=== PATIENT | female | born 1930 | race Caucasian/White ===

== ENCOUNTER 2016-12-03 20:42 | Inpatient (IN) | payer MEDICARE ==
[~2016-12-03] VITALS: Ht 157.5 cm; Wt 58.5 kg
--- NOTE | 2016-12-03 21:55 | NUR ---
Report called to MIRIAM Avitia.
[2016-12-03] MEDS ORDERED: SENN-167 PO (22:48)
[2016-12-03] MEDS ORDERED: CITA20TA11 PO (22:48)
[2016-12-03] MEDS ORDERED: PANT40TA4 PO (22:48)
[2016-12-03] MEDS ORDERED: LISI10TA5 PO (22:48)
[2016-12-03] MEDS ORDERED: FERR325T28 PO (22:48)
[2016-12-03] MEDS ORDERED: DONE10TA44 PO (22:48)
[2016-12-03] MEDS ORDERED: PRAV10TA40 PO (22:48)
[2016-12-03] MEDS ORDERED: CYAN100T3 PO (22:48)
[2016-12-03] MEDS ORDERED: ACET325T53 PO (22:48)
[2016-12-03] MEDS ORDERED: ASPI81TA31 PO (22:48)
[2016-12-03] MEDS ORDERED: CLOP75TA15 PO (22:48)
[2016-12-03] MEDS ORDERED: AMPI500C11 PO (22:48)
[2016-12-03] MEDS ORDERED: BLOO-140 IN (22:48)
[2016-12-03] MEDS ORDERED: DOCU100C36 PO (22:48)
--- NOTE | 2016-12-03 23:07 | NUR ---
Pt. admitted to [facility] , under care of Dr. Sutton Belongs List completed
--- NOTE | 2016-12-03 23:18 | NUR ---
Pt. admitted to [facility] , under care of Dr. Sutton Belongs List completed
[2016-12-04] MEDS ORDERED: LORAZEPAM 1 MG TABLET PO PRN
[2016-12-04] MEDS ORDERED: MAG HYDROX/AL HYDROX/SIMETH 30 ML LIQUID UDC PO PRN
[2016-12-04] MEDS ORDERED: ACETAMINOPHEN 325 MG TABLET PO PRN
[2016-12-04] MEDS ORDERED: TEMAZEPAM 7.5 MG CAPSULE PO PRN
[2016-12-04] MEDS ORDERED: MAGNESIUM HYDROXIDE 30 ML LIQUID UDC PO PRN
[2016-12-04 01:13] VITALS: BP 125/72
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
[2016-12-04 07:30] VITALS: BP 129/74
[2016-12-04] MEDS ORDERED: AMPICILLIN 500 MG CAPSULE PO SCH (10:45)
[2016-12-04] MEDS ORDERED: Medication Not On Formulary EA (Pravastatin Sodium 10 MG) PO SCH (10:45)
[2016-12-04] MEDS ORDERED: DEXTROSE 50% 50 ML DISP.SYRIN IV PRN (10:45)
--- NOTE | 2016-12-04 12:23 | NUR ---
Initial discharge instructions: The patient reside at [facility] [[address] [place] [address]; ]. Spoke with the patient's daughter who stated that she would like the patient to return to the facility upon DC. RODRIGO called the facility designer/local owner operator truck driver Aj Benavides who stated that he would like to come assess the patient prior to accepting her back to the facility. RODRIGO will speak with patient, family, and MD regarding most appropriate discharge plan. SS will form a safe and proper discharge.
[2016-12-04] MEDS: AMPICILLIN 500 MG CAPSULE PO SCH ×3 (12:51→20:06)
[2016-12-04] MEDS: PANTOPRAZOLE SODIUM 40 MG TABLET.DR PO SCH (12:51)
[2016-12-04] MEDS: FERROUS SULFATE 325 MG TABEC PO SCH ×3 (12:51→17:34)
[2016-12-04] MEDS: CLOPIDOGREL 75 MG TABLET PO SCH (12:51)
[2016-12-04] MEDS: QUETIAPINE FUMARATE 25 MG TABLET PO SCH ×2 (12:52→17:34)
[2016-12-04] MEDS: DOCUSATE SODIUM 100 MG CAPSULE PO SCH ×2 (12:53→17:34)
[2016-12-04] MEDS: CYANOCOBALAMIN 100 MCG TABLET PO SCH (12:54)
[2016-12-04] MEDS: CITALOPRAM 20 MG TABLET PO SCH (12:54)
[2016-12-04] MEDS: ASPIRIN 81 MG TAB.CHEW PO SCH (12:54)
[2016-12-04] MEDS: SENNOSIDES 1 TABLET PO SCH (12:59)
--- NOTE | 2016-12-04 13:06 | NUR ---
ist dose given at 1300 already
[2016-12-04] MEDS: BLOOD SUGAR DIAGNOSTIC 1 EACH STRIP VI SCH ×3 (13:20→20:19)
[2016-12-04] MEDS: INSULIN REGULAR, HUMAN 300 UNIT/3 ML VIAL SQ PRN ×2 (13:27→20:27)
--- NOTE | 2016-12-04 14:21 | NUR ---
UR Note: RODRIGO faxed most the patient's most recent clinicals: facesheet, 5150, H&P, progress notes, and medication list to AKANKSHA Benavidez Assigned: Josee PH: , Tracking # : [id number]
[2016-12-04 14:54] LABS: BASOPHILS % (AUTO) 0.3 % (0.0-2.0); EOSINOPHILS # (AUTO) 0.1 K/uL (0.0-0.7); EOSINOPHILS % (AUTO) 1.9 % (0.0-7.0); HEMATOCRIT 29.2 % (37-47); HEMOGLOBIN 9.4 G/DL (12.0-16.0); LYMPHOCYTES # (AUTO) 0.8 K/UL (0.8-4.8); LYMPHOCYTES % (AUTO) 12.2 % (20.5-51.5); MEAN CORPUSCULAR HEMOGLOBIN 27.7 UUG (27.0-31.0); MEAN CORPUSCULAR HGB CONC 32 g/dL (32.0-37.0); MEAN CORPUSCULAR VOLUME 86.4 FL (81.0-99.0); MONOCYTES # (AUTO) 0.5 K/UL (0.1-1.30); MONOCYTES % (AUTO) 7.3 % (0.0-11.0); NEUTROPHILS # (AUTO) 5.1 K/UL (1.8-8.9); NEUTROPHILS % (AUTO) 78.3 % (38.5-71.5); PLATELET COUNT (AUTO) 276 K/UL (150-450); RED BLOOD CELL COUNT(AUTO) 3.38 MIL/UL (4.2-5.4); WHITE BLOOD COUNT (AUTO) 6.5 K/UL (4.0-11.2)
[2016-12-04 15:00] VITALS: BP 105/75
[2016-12-04 15:13] LABS: ALANINE AMINOTRANSFERASE 12 U/L (14-59); ALKALINE PHOSPHATASE 83 U/L (50-136); ASPARTATE AMINOTRANSFERASE 19 U/L (15-37); BILIRUBIN,TOTAL 0.4 mg/dL (0.2-1.0); CARBON DIOXIDE 24 mmol/L (21-32); CHLORIDE 97 mmol/L (98-107); CREATININE 0.7 mg/dL (0.6-1.3); GLUCOSE 84 mg/dL (74-106); MAGNESIUM 1.8 mg/dL (1.8-2.4); PHOSPHOROUS 3.7 mg/dL (2.5-4.9); POTASSIUM 4.5 mmol/L (3.5-5.1); TOTAL PROTEIN, SERUM 7.2 g/dL (6.4-8.2); UREA NITROGEN, BLOOD 13 mg/dL (7-18)
[2016-12-04 15:17] LABS: BAND % (MANUAL) 5 % (0-10); EOSINOPHILS % (MANUAL) 1 % (0-8); LYMPHOCYTES % (MANUAL) 12 % (20-40); MONOCYTES % (MANUAL) 7 % (2-10); NEUTROPHILS % (MANUAL) 75 % (42-75)
[2016-12-04 15:36] LABS: THYROID STIMULATING HORMONE 2.739 mIU/mL (0.358-3.740)
--- NOTE | 2016-12-04 19:19 | NUR ---
patient up in ronni chair in front of nurses station with no outbursts , assisted to bathroom with moderate assist, oral intake qs family in too visit med compliant and stated o accucheck wnl continue to monitor pts safety
[2016-12-04] MEDS: ATORVASTATIN 10 MG TABLET PO SCH (20:06)
[2016-12-04 20:48] VITALS: BP 119/72
[2016-12-05] MEDS: BLOOD SUGAR DIAGNOSTIC 1 EACH STRIP VI SCH ×4 (06:35→20:29)
[2016-12-05 07:30] VITALS: BP 115/65
[2016-12-05 07:54] LABS: BASOPHILS % (AUTO) 0.2 % (0.0-2.0); EOSINOPHILS # (AUTO) 0.2 K/uL (0.0-0.7); EOSINOPHILS % (AUTO) 3.2 % (0.0-7.0); HEMOGLOBIN 8.8 G/DL (12.0-16.0); LYMPHOCYTES % (AUTO) 19.7 % (20.5-51.5); MEAN CORPUSCULAR HEMOGLOBIN 28.4 UUG (27.0-31.0); MEAN CORPUSCULAR HGB CONC 33 g/dL (32.0-37.0); MEAN CORPUSCULAR VOLUME 87.1 FL (81.0-99.0); MONOCYTES # (AUTO) 0.6 K/UL (0.1-1.30); MONOCYTES % (AUTO) 11.1 % (0.0-11.0); NEUTROPHILS # (AUTO) 3.2 K/UL (1.8-8.9); NEUTROPHILS % (AUTO) 65.8 % (38.5-71.5); PLATELET COUNT (AUTO) 271 K/UL (150-450)
[2016-12-05] MEDS: CLOPIDOGREL 75 MG TABLET PO SCH (08:47)
[2016-12-05] MEDS: PANTOPRAZOLE SODIUM 40 MG TABLET.DR PO SCH (08:47)
[2016-12-05] MEDS: AMPICILLIN 500 MG CAPSULE PO SCH ×4 (08:47→20:30)
[2016-12-05] MEDS: CYANOCOBALAMIN 100 MCG TABLET PO SCH (08:47)
[2016-12-05] MEDS: DOCUSATE SODIUM 100 MG CAPSULE PO SCH ×4 (08:47→17:15)
[2016-12-05] MEDS: SENNOSIDES 1 TABLET PO SCH (08:47)
[2016-12-05] MEDS: FERROUS SULFATE 325 MG TABEC PO SCH ×3 (08:48→17:01)
[2016-12-05] MEDS: ASPIRIN 81 MG TAB.CHEW PO SCH (08:48)
[2016-12-05] MEDS: CITALOPRAM 20 MG TABLET PO SCH (08:48)
[2016-12-05 08:49] LABS: ALANINE AMINOTRANSFERASE 11 U/L (14-59); ALKALINE PHOSPHATASE 75 U/L (50-136); ASPARTATE AMINOTRANSFERASE 12 U/L (15-37); BILIRUBIN,TOTAL 0.5 mg/dL (0.2-1.0); CARBON DIOXIDE 24 mmol/L (21-32); CHLORIDE 96 mmol/L (98-107); CREATININE 1.2 mg/dL (0.6-1.3); GLUCOSE 88 mg/dL (74-106); MAGNESIUM 1.7 mg/dL (1.8-2.4); PHOSPHOROUS 4.1 mg/dL (2.5-4.9); POTASSIUM 4.5 mmol/L (3.5-5.1); TOTAL PROTEIN, SERUM 6.7 g/dL (6.4-8.2); UREA NITROGEN, BLOOD 19 mg/dL (7-18)
[2016-12-05] MEDS: QUETIAPINE FUMARATE 25 MG TABLET PO SCH ×2 (08:57→17:02)
[2016-12-05 08:59] LABS: IRON, SERUM 32 ug/dL (50-175)
[2016-12-05] MEDS ORDERED: MAGNESIUM OXIDE 400 MG TABLET PO ONE (13:30)
[2016-12-05 15:51] VITALS: BP 110/66
[2016-12-05] MEDS: ATORVASTATIN 10 MG TABLET PO SCH (20:06)
[2016-12-05 20:46] VITALS: BP 124/71
[2016-12-06] MEDS: BLOOD SUGAR DIAGNOSTIC 1 EACH STRIP VI SCH ×4 (06:54→20:35)
[2016-12-06 07:30] VITALS: BP 113/63
[2016-12-06] MEDS: AMPICILLIN 500 MG CAPSULE PO SCH ×4 (08:06→20:29)
[2016-12-06] MEDS: CYANOCOBALAMIN 100 MCG TABLET PO SCH (08:06)
[2016-12-06] MEDS: FERROUS SULFATE 325 MG TABEC PO SCH ×3 (08:06→17:08)
[2016-12-06] MEDS: DOCUSATE SODIUM 100 MG CAPSULE PO SCH ×2 (08:06→17:08)
[2016-12-06] MEDS: CITALOPRAM 20 MG TABLET PO SCH (08:06)
[2016-12-06] MEDS: QUETIAPINE FUMARATE 25 MG TABLET PO SCH ×2 (08:06→17:08)
[2016-12-06] MEDS: CLOPIDOGREL 75 MG TABLET PO SCH (08:06)
[2016-12-06] MEDS: SENNOSIDES 1 TABLET PO SCH (08:06)
[2016-12-06] MEDS: ASPIRIN 81 MG TAB.CHEW PO SCH (08:06)
[2016-12-06] MEDS: PANTOPRAZOLE SODIUM 40 MG TABLET.DR PO SCH (08:06)
[2016-12-06 11:48] LABS: *BILIRUBIN,URIN NEGATIVE (NEGATIVE); *BLOOD, URINE NEGATIVE (NEGATIVE); *CLARITY,URINE CLEAR (CLEAR); *COLOR,URINE YELLOW (YELLOW); *KETONES,URINE NEGATIVE (NEGATIVE); *PROTEIN,URINE NEGATIVE (NEGATIVE); *UROBILINOGEN,URINE 0.2 E.U./dl (NORMAL); LEUKOCYTE ESTERASE ,URINE NEGATIVE (NEGATIVE); NITRITE, URINE NEGATIVE (NEGATIVE); PH,URINE 5.5 (5.0-8.0); UGLUCOSE NEGATIVE (NEGATIVE)
[2016-12-06 12:21] LABS: RBC,URINE 0-3 /HPF (0-3)
[2016-12-06 12:22] LABS: BACTERIA,URINE NONE SEEN /HPF (NONE SEEN); MUCUS,URINE FEW /LPF (0-FEW); SQUAMOUS EPITHELIAL CELL,UR MODERATE /HPF (NONE SEEN); WBC,URINE 0-3 /HPF (0-3); YEAST,URINE FEW /HPF (NONE SEEN)
[2016-12-06 16:00] VITALS: BP 131/66
[2016-12-06] MEDS: INSULIN REGULAR, HUMAN 300 UNIT/3 ML VIAL SQ PRN (17:09)
[2016-12-06 20:00] VITALS: BP 131/66
[2016-12-06] MEDS: ATORVASTATIN 10 MG TABLET PO SCH (20:29)
[2016-12-07] MEDS: BLOOD SUGAR DIAGNOSTIC 1 EACH STRIP VI SCH ×2 (06:38→12:18)
[2016-12-07 07:44] VITALS: BP 144/62
[2016-12-07 08:06] LABS: BASOPHILS % (AUTO) 0.1 % (0.0-2.0); EOSINOPHILS # (AUTO) 0.2 K/uL (0.0-0.7); EOSINOPHILS % (AUTO) 3.9 % (0.0-7.0); HEMATOCRIT 25.4 % (37-47); HEMOGLOBIN 8.5 G/DL (12.0-16.0); LYMPHOCYTES # (AUTO) 0.9 K/UL (0.8-4.8); LYMPHOCYTES % (AUTO) 18.1 % (20.5-51.5); MEAN CORPUSCULAR HEMOGLOBIN 29.3 UUG (27.0-31.0); MEAN CORPUSCULAR HGB CONC 33 g/dL (32.0-37.0); MONOCYTES # (AUTO) 0.5 K/UL (0.1-1.30); MONOCYTES % (AUTO) 10.7 % (0.0-11.0); NEUTROPHILS # (AUTO) 3.2 K/UL (1.8-8.9); NEUTROPHILS % (AUTO) 67.2 % (38.5-71.5); PLATELET COUNT (AUTO) 262 K/UL (150-450); RED BLOOD CELL COUNT(AUTO) 2.89 MIL/UL (4.2-5.4); WHITE BLOOD COUNT (AUTO) 4.8 K/UL (4.0-11.2)
[2016-12-07 08:22] LABS: ALANINE AMINOTRANSFERASE 12 U/L (14-59); ALKALINE PHOSPHATASE 78 U/L (50-136); ASPARTATE AMINOTRANSFERASE 15 U/L (15-37); BILIRUBIN,TOTAL 0.4 mg/dL (0.2-1.0); CARBON DIOXIDE 25 mmol/L (21-32); CHLORIDE 97 mmol/L (98-107); CREATININE 0.8 mg/dL (0.6-1.3); GLUCOSE 86 mg/dL (74-106); MAGNESIUM 1.8 mg/dL (1.8-2.4); PHOSPHOROUS 3.7 mg/dL (2.5-4.9); POTASSIUM 5.2 mmol/L (3.5-5.1); TOTAL PROTEIN, SERUM 6.6 g/dL (6.4-8.2); UREA NITROGEN, BLOOD 19 mg/dL (7-18)
[2016-12-07] MEDS: FERROUS SULFATE 325 MG TABEC PO SCH ×3 (08:47→17:31)
[2016-12-07] MEDS: CITALOPRAM 20 MG TABLET PO SCH (08:47)
[2016-12-07] MEDS: ASPIRIN 81 MG TAB.CHEW PO SCH (08:47)
[2016-12-07] MEDS: PANTOPRAZOLE SODIUM 40 MG TABLET.DR PO SCH (08:47)
[2016-12-07] MEDS: DOCUSATE SODIUM 100 MG CAPSULE PO SCH ×2 (08:47→17:31)
[2016-12-07] MEDS: SENNOSIDES 1 TABLET PO SCH (08:47)
[2016-12-07] MEDS: CYANOCOBALAMIN 100 MCG TABLET PO SCH (08:47)
[2016-12-07] MEDS: CLOPIDOGREL 75 MG TABLET PO SCH (08:47)
[2016-12-07] MEDS: QUETIAPINE FUMARATE 25 MG TABLET PO SCH ×2 (08:48→17:34)
[2016-12-07] MEDS: AMPICILLIN 500 MG CAPSULE PO SCH ×4 (08:54→21:10)
--- NOTE | 2016-12-07 11:22 | NUR ---
UR Note: RODRIGO faxed most the patient's most recent clinicals to AKANKSHA Benavidez/Deysi PH: , Tracking #[id number]
[2016-12-07 15:58] LABS: *CREATININE,URINE 53.7 mg/dL (30-125)
[2016-12-07 16:33] VITALS: BP 128/63
[2016-12-07] MEDS: ATORVASTATIN 10 MG TABLET PO SCH (20:28)
[2016-12-07 21:23] VITALS: BP 164/84
--- NOTE | 2016-12-08 05:08 | NUR ---
Patient's Potassium level is 5.2. MD was notify. No new order given at this time. Patient in stable condition. V/S WNL. we will continue to monitor
[2016-12-08] MEDS ORDERED: DEXTROSE 50% 50 ML DISP.SYRIN IV PRN (06:00)
[2016-12-08] MEDS ORDERED: BLOOD SUGAR DIAGNOSTIC 1 EACH STRIP VI SCH (06:00)
[2016-12-08] MEDS ORDERED: INSULIN REGULAR, HUMAN 300 UNIT/3 ML VIAL SQ PRN (06:00)
[2016-12-08 07:30] VITALS: BP 145/70
[2016-12-08] MEDS: CITALOPRAM 20 MG TABLET PO SCH (08:19)
[2016-12-08] MEDS: SENNOSIDES 1 TABLET PO SCH (08:19)
[2016-12-08] MEDS: PANTOPRAZOLE SODIUM 40 MG TABLET.DR PO SCH (08:20)
[2016-12-08] MEDS: FERROUS SULFATE 325 MG TABEC PO SCH ×2 (08:20→12:22)
[2016-12-08] MEDS: DOCUSATE SODIUM 100 MG CAPSULE PO SCH (08:20)
[2016-12-08] MEDS: CYANOCOBALAMIN 100 MCG TABLET PO SCH (08:20)
[2016-12-08] MEDS: QUETIAPINE FUMARATE 25 MG TABLET PO SCH (08:20)
[2016-12-08 08:26] LABS: BASOPHILS % (AUTO) 0.2 % (0.0-2.0); EOSINOPHILS # (AUTO) 0.2 K/uL (0.0-0.7); EOSINOPHILS % (AUTO) 4.5 % (0.0-7.0); HEMATOCRIT 25.1 % (37-47); HEMOGLOBIN 8.6 G/DL (12.0-16.0); LYMPHOCYTES # (AUTO) 0.9 K/UL (0.8-4.8); LYMPHOCYTES % (AUTO) 17.8 % (20.5-51.5); MEAN CORPUSCULAR HEMOGLOBIN 29.7 UUG (27.0-31.0); MEAN CORPUSCULAR HGB CONC 34 g/dL (32.0-37.0); MEAN CORPUSCULAR VOLUME 87.2 FL (81.0-99.0); MONOCYTES # (AUTO) 0.5 K/UL (0.1-1.30); MONOCYTES % (AUTO) 10.3 % (0.0-11.0); NEUTROPHILS # (AUTO) 3.7 K/UL (1.8-8.9); NEUTROPHILS % (AUTO) 67.2 % (38.5-71.5); PLATELET COUNT (AUTO) 243 K/UL (150-450); RED BLOOD CELL COUNT(AUTO) 2.88 MIL/UL (4.2-5.4); WHITE BLOOD COUNT (AUTO) 5.3 K/UL (4.0-11.2)
[2016-12-08] MEDS: AMPICILLIN 500 MG CAPSULE PO SCH ×2 (08:26→12:22)
[2016-12-08 08:43] LABS: ALANINE AMINOTRANSFERASE 12 U/L (14-59); ALKALINE PHOSPHATASE 82 U/L (50-136); ASPARTATE AMINOTRANSFERASE 14 U/L (15-37); BILIRUBIN,TOTAL 0.4 mg/dL (0.2-1.0); CARBON DIOXIDE 25 mmol/L (21-32); CHLORIDE 92 mmol/L (98-107); CREATININE 0.7 mg/dL (0.6-1.3); GLUCOSE 85 mg/dL (74-106); MAGNESIUM 1.7 mg/dL (1.8-2.4); PHOSPHOROUS 3.3 mg/dL (2.5-4.9); POTASSIUM 4.4 mmol/L (3.5-5.1); TOTAL PROTEIN, SERUM 6.6 g/dL (6.4-8.2); UREA NITROGEN, BLOOD 14 mg/dL (7-18)
--- NOTE | 2016-12-08 10:15 | NUR ---
DC Note: The patient will be discharged today back to [facility] [ [place] [address]; ]. Spoke with the patient's daughter Vick who stated that she will pick-up the patient at 12:00 pm today and take her to the facility via private car. RODRIGO called the college administrator/midwife and birth center owner Aj Benavides who stated that they will be accepting the patient back today. An order for home health will be faxed to [facility] at fax: . The patient will follow-up with her embroidery supervisor Dr. Gómez Arneas . Spoke with [facility] AKANKSHA Jo ext#[phone] who is arranging an outpatient psychiatry appointment for the patient. RODRIGO awaiting appointment information. Deysi has also provided Dr. Vicki Singh, PhD [[address] [place] [address]] for outpatient therapy. If patient would like to make an appointment, AKANKSHA Jo at [facility] must be contacted for authorization at ext#[phone]. Addendum: 12/08/16 at 1029 by SHAVON WALLACE Received a voicemail from AKANKSHA Jo with [facility] stating that the patient has an outpatient psychiatry appointment with Dr. Yimi Sutton on , 7/27/17 at 6:00 pm [[address] [address] ]. Addendum: 12/08/16 at 1405 by SHAVON WALLACE Received a voicemail from [facility] AKANKSHA Jo ext#[phone] stating that she had provided the wrong fax number for HCP for home health order. Deysi requested that RODRIGO re-fax to AKANKSHA Vang with HCP at . RODRIGO has re-faxed the order for home health as requested.
--- NOTE | 2016-12-08 12:30 | NUR ---
Patient will be discharged today back to [facility] , Daughter, Vick Dewey will bring patient to the facility.1000 Called Adm. Aj Benavides and notified patient will discharged today back to their facility. All prescription called in to [facility] at [place], spoke to Osorio,pharmacist. !200 Daughter, HOLLY, Vick Dewey came and discharged instruction given regarding patient , medications to continue at [facility]- dtr. verbalized understanding. 1230 Brought patient to parking area per w/c alert and ox1, denies SI/HI. no delusion/no hallucination noted.
[2016-12-08] MEDS ORDERED: MAGNESIUM OXIDE 400 MG TABLET PO ONE (14:45)
[2016-12-08] MEDS ORDERED: SODIUM CHLORIDE 1,000 MG TABLET PO SCH (17:00)
[2016-12-08] MEDS ORDERED: DEMECLOCYCLINE HCL 150 MG TABLET PO SCH (21:00)
--- NOTE | 2016-12-09 08:24 | NUR ---
DC Clinicals: RODRIGO faxed DC clinicals to AKANKSHA Benavidez/Josee PH: , Tracking #[id number]
== END 2016-12-08 12:30 | DRG 885 ==
LOC: ER 20:42 → GPS 23:00
PROVIDERS: ADMIT Psychiatry & Neurology Psychiatry; ATTEND Internal Medicine
DX: F33.3 Major depressive disorder, recurrent, severe with psychotic symptoms (principal); E11.65 Type 2 diabetes mellitus with hyperglycemia; F03.91 Unspecified dementia, unspecified severity, with behavioral disturbance; N39.0 Urinary tract infection, site not specified; E44.0 Moderate protein-calorie malnutrition; E22.2 Syndrome of inappropriate secretion of antidiuretic hormone; I69.919 Unspecified symptoms and signs involving cognitive functions following unspecified cerebrovascular disease; I10 Essential (primary) hypertension; I25.2 Old myocardial infarction; Z85.038 Personal history of other malignant neoplasm of large intestine; I25.10 Atherosclerotic heart disease of native coronary artery without angina pectoris; E78.5 Hyperlipidemia, unspecified; E53.8 Deficiency of other specified B group vitamins; Z88.2 Allergy status to sulfonamides; D50.9 Iron deficiency anemia, unspecified; E87.5 Hyperkalemia
CPT/HCPCS: 36415; 82533; 83550; 83735; 84100; 84300; 84443; 85025; 87086; 93005; 97116; 97161; 97530; J0290; J1815